=== PATIENT | female | born 1965 | race Caucasian/White ===

== ENCOUNTER → 2023-10-27 08:26 | Outpatient (BNVA) | payer BC, MEDICAID, SELFPAY | PROVIDERS: PCP Nurse Practitioner Family; Visit Provider Nurse Practitioner Family | DX: R23.2 Flushing (principal); I10 Essential (primary) hypertension; R30.0 Dysuria | CPT/HCPCS: 80053; 80061; 81000; 84443; 85025 ==

== ENCOUNTER → 2024-02-05 12:19 | Outpatient (BNVA) | payer BC, MEDICAID, SELFPAY | DX: I10 Essential (primary) hypertension (principal); K21.9 Gastro-esophageal reflux disease without esophagitis | CPT/HCPCS: 71046; 80053; 86677 ==